=== PATIENT | male | born 1940 | race Caucasian/White ===

== ENCOUNTER 2016-08-31 11:20 | Inpatient (IN) ==
[2016-08-31] MEDS ORDERED: SALINE LOCK IV FLUID XX ONE (13:59)
[2016-08-31] MEDS ORDERED: NITROGLYCERIN SL PRN (13:59)
[2016-08-31] MEDS ORDERED: TYLENOL PO PRN (13:59)
[2016-08-31] MEDS ORDERED: COZAAR PO PRN (13:59)
[2016-08-31 14:21] LABS: MANUAL DIFF NEEDED? NO
[2016-08-31 14:51] LABS: BASO% 0.2 % (0.0-0.8); EOS# 0.01 X1000 (0.0-0.7); EOS% 0.1 % (0.0-10.0); HEMATOCRIT 38.3 % (42.0-52.0); HEMOGLOBIN 12.1 g/dL (14.0-18.0); IMM GRAN# 0.18 X1000 (0.0-0.04); LYMPH# 1.46 X1000 (1.2-3.4); LYMPH% 7.8 % (20.5-51.1); MCH 28.3 PG (27-31); MCHC 31.6 g/dL (33-37); MCV 89.5 FL (81-99); MONO# 1.53 X1000 (0.11-0.59); MONO% 8.2 % (1.7-9.3); MPV 10.4 FL (7.4-10.4); NEUT% 82.7 % (42.2-75.2); PLT 330 X1000 (130-400); RBC 4.28 XMIL (4.7-6.1)
[2016-08-31 14:58] LABS: AGAP 10; ALBUMIN 3.4 g/dL (3.5-5.0); ALKALINE PHOSPHATASE 184 U/L (32-122); BUN 16 mg/dL (8-22); CALCIUM 8.9 mg/dL (8.8-10.2); CHLORIDE 96 mmol/L (98-107); COSMO 276; GOT 40 U/L (10-34); GPT 60 U/L (10-44); SODIUM 136 mmol/L (136-145); TCO2 30 mmol/L (25-35); TOTAL BILIRUBIN 0.68 mg/dL (0.20-1.00); TOTAL PROTEIN 6.3 g/dL (6.3-8.3)
--- NOTE | 2016-08-31 15:48 | EKG Report ---
Test Performed on : 08/31/2016 3:24:55 PM Test Reason : dyspnea Blood Pressure : / mmHG Vent. Rate : 087 BPM Atrial Rate : 087 BPM P-R Int : 194 ms QRS Dur : 102 ms QT Int : 388 ms P-R-T Axes : 012 -43 068 degrees QTc Int : 466 ms Normal sinus rhythm. Left axis deviation Inferior infarct , age undetermined Abnormal ECG When compared with ECG of 23-JUL-2016 06:26, Inferior infarct is now present Confirmed by Vasquez HERNANDEZ, Tr Granados ([id number]) on 09/03/2016 9:10:09 AM
[2016-08-31] MEDS ORDERED: FLOMAX PO SCH (18:00)
--- NOTE | 2016-08-31 20:29 | Diag Imaging Result Doc PS360 ---
EXAM: ANGIOGRAM/PULMONARY ARTERIES HISTORY: possible hemothorax/chest contusion? TECHNIQUE: CT of the chest with intravenous contrast and dose reduction (clarity.) COMMENT:There are no filling defects in the pulmonary arteries. The aorta is not distended and there is no evidence of dissection. There are extensive calcifications in the coronary arteries. Compared to the previous study of 03/09/2016 there is been improvement in the atelectasis and consolidation in the lower lobes bilaterally. There is some subsegmental atelectasis in the right lower lobe which was not present previously. There are tree-in-bud opacities in the posterior lateral right upper lobe which were present previously. There are fibrotic changes in the left apex. Some fibrosis is also present on the right both of which were present previously. There is a small left pleural effusion. There are old rib fractures on the left laterally as well as posteriorly on the right all of which were present at the time the previous study. There is an apparent low-density lesion posteriorly in the spleen which has not changed significantly since the previous study. There are multiple stones in the right upper collecting system which were present previously. IMPRESSION: Improvement in atelectatic changes in the lower lobes. Small left pleural fluid collection. Electronically signed by Dakota Andersen 08/31/2016 8:27 PM
[2016-08-31] MEDS ORDERED: AMBIEN PO SCH (21:00)
[2016-08-31] MEDS: ZYLOPRIM PO SCH (21:00)
[2016-08-31] MEDS: TAMBOCOR PO SCH (21:00)
[2016-08-31] MEDS ORDERED: LOVENOX SUBQ SCH (21:00)
[2016-08-31] MEDS: NORCO-7.5 PO PRN (21:03)
[2016-09-01] MEDS: NORCO-7.5 PO PRN ×3 (02:07→11:29)
[2016-09-01 06:53] LABS: INR 0.97; PROTIME 10.2 Seconds (9.2-11.7)
--- NOTE | 2016-09-01 07:05 | EKG Report ---
Test Performed on : 09/01/2016 06:15:38 AM Test Reason : chest pain Blood Pressure : / mmHG Vent. Rate : 073 BPM Atrial Rate : 073 BPM P-R Int : 200 ms QRS Dur : 096 ms QT Int : 394 ms P-R-T Axes : 021 -12 066 degrees QTc Int : 434 ms Normal sinus rhythm. Cannot rule out Inferior infarct (cited on or before 05-APR-2014) Abnormal ECG When compared with ECG of 31-AUG-2016 15:24, (Unconfirmed) No significant change was found Confirmed by Vasquez HERNANDEZ, Tr Granados ([id number]) on 09/03/2016 9:11:19 AM
[2016-09-01] MEDS ORDERED: SPIRIVA INH SCH (07:30)
[2016-09-01] MEDS ORDERED: VENTOLIN HFA INH SCH (07:30)
[2016-09-01] MEDS ORDERED: GLUCOPHAGE PO SCH (08:00)
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
[2016-09-01] MEDS: TAMBOCOR PO SCH (08:32)
[2016-09-01] MEDS: ZYLOPRIM PO SCH (08:32)
[2016-09-01] MEDS ORDERED: JANUVIA PO SCH (09:00)
[2016-09-01] MEDS ORDERED: LASIX PO SCH (09:00)
[2016-09-01] MEDS ORDERED: CYMBALTA PO SCH (09:00)
[2016-09-01] MEDS ORDERED: KLOR-CON PO SCH (09:00)
[2016-09-01] MEDS ORDERED: PROSCAR PO SCH (09:00)
[2016-09-01] MEDS ORDERED: SINGULAIR PO SCH (09:00)
[2016-09-01] MEDS ORDERED: PRAVACHOL PO SCH (09:00)
[2016-09-01] MEDS ORDERED: ULTRAM PO SCH (09:00)
[2016-09-01] MEDS ORDERED: PREDNISONE PO SCH ×4 (09:00)
--- NOTE | 2016-09-01 14:11 | ECHO REPORT ---
ORDER DATE: 08/31/2016 DATE OF STUDY: 08/31/2016. ECHOCARDIOGRAPHIC MEASUREMENTS: 1. Left ventricular end-diastolic diameter 4.3. 2. Left atrium 4.0. 3. Aortic root 3.2 INTERPRETATION: 1. Technically difficult study due to limited acoustic window quality. There were no apical windows available. 2. Minimal sclerosis of trileaflet aortic valve demonstrated with adequate aortic valve opening evident. Mitral, tricuspid and pulmonic valves are without structural abnormality with mild mitral regurgitation, trace tricuspid regurgitation and trace pulmonic insufficiency. Aortic root is normal in size. 3. Normal left ventricular chamber size with mild concentric left hypertrophy suggested. Estimated left ventricular ejection fraction appears to be at least 60%. No obvious wall motion abnormality can be appreciated. Left atrium is upper normal in size. Right atrium and right ventricle are of normal size with grossly preserved right ventricular systolic function. 4. No pericardial effusion. 5. Appearance of inferior vena cava suggests normal central venous pressure. CONCLUSIONS: 1. Technically difficult study. 2. Minimal aortic valve sclerosis without stenosis. 3. Mild mitral regurgitation. 4. Mild concentric left hypertrophy with estimated left ventricular ejection fraction approximately 60%. cc: MD Jessica Mike PA Russell T. Barr, MD
[2016-09-01 14:42] VITALS: BP 115/67
== END 2016-09-01 19:00 | disposition home or self-care (01) ==
LOC: DIRADM 11:20 → 3N 11:51
PROVIDERS: ADMIT Internal Medicine; ATTEND Internal Medicine